=== PATIENT | male | born 1960 | race Caucasian/White ===

== ENCOUNTER 2019-04-17 02:43 | Emergency (ER) | payer OTHER ==
[~2019-04-17] VITALS: Ht 193 cm; Wt 100.7 kg
[2019-04-17] MEDS ORDERED: cloNIDine HCL 0.1 MG TAB PO ONE (03:30)
[2019-04-17] MEDS ORDERED: TETRACAINE HCL 0.5% OPTH(EYE) SOLN 4ML EACHEYE ONE (05:00)
[2019-04-17] MEDS ORDERED: FLUORESCEIN SOD 1 MG TEST STRIP EACHEYE ONE (05:00)
[2019-04-17 05:04] VITALS: BP 139/104
[2019-04-17] MEDS ORDERED: GENTAMICIN OPTH sol 0.3% 5ml EACHEYE ONE (05:15)
== END 2019-04-17 05:25 | disposition home or self-care (01) ==
LOC: ER 02:43
DX: T15.90XA Foreign body on external eye, part unspecified, unspecified eye, initial encounter (principal); X58.XXXA Exposure to other specified factors, initial encounter; Y93.89 Activity, other specified; Y99.8 Other external cause status; Y92.89 Other specified places as the place of occurrence of the external cause